=== PATIENT | female | born 1940 | race Caucasian/White ===

== ENCOUNTER 2016-06-20 08:50 | Emergency (ER) | payer MEDICARE ==
--- NOTE | 2016-06-20 09:26 | ER Document Report ---
ED General - General Mode of Arrival: Medic Information source: Patient, Emergency Med Personnel TRAVEL OUTSIDE OF THE [place] IN LAST 30 DAYS: No - HPI Patient complains to provider of: Weakness Onset: Other - few days ago Associated symptoms: Other - see notes above <TRESA LENZ - Last Filed: 06/20/16 09:21> <KALAFERMIN - Last Filed: 06/20/16 12:26> - General Chief Complaint: General Weakness Stated Complaint: WEAKNESS Notes: 76 year old female with history of dementia, COPD, hypertension, and Alzheimer' s presents to the ED via EMS complaining of weakness and shortness of breath that started a few days ago. Patient states that nothing has recently happened to cause the weakness, but that she feels tired and out of energy. Patient reports the shortness of breath at rest, but worsened with exertion. Patient's son also states that the patient has been having loss of appetite for the past couple months. Patient is on medication to help with her appetite. Patient's primary care provider is Dr. Chance at [facility]. (TRESA LENZ) - Related Data Allergies/Adverse Reactions: Penicillins Allergy (Verified 04/20/15 15:53) Past Medical History - General Information source: Patient - Social History Smoking Status: Unknown if Ever Smoked Family History: Reviewed & Not Pertinent - Past Medical History Cardiac Medical History: Reports: Hx Hypertension Pulmonary Medical History: Reports: Hx COPD Psychiatric Medical History: Reports: Hx Dementia, Other - alzheimer's Past Surgical History: Reports: Hx Appendectomy, Hx Cholecystectomy, Hx Hysterectomy <TRESA LENZ - Last Filed: 06/20/16 09:21> Review of Systems - Review of Systems Constitutional: See HPI, Weakness EENT: No symptoms reported Cardiovascular: No symptoms reported Respiratory: See HPI, Short of breath - worsened with exertion Gastrointestinal: See HPI, Poor appetite Genitourinary: No symptoms reported Female Genitourinary: No symptoms reported Musculoskeletal: No symptoms reported Skin: No symptoms reported Hematologic/Lymphatic: No symptoms reported Neurological/Psychological: No symptoms reported -: Yes All other systems reviewed and negative <TRESA LENZ - Last Filed: 06/20/16 09:21> Physical Exam - General General appearance: Alert, Other - cachectic In distress: None - HEENT Head: Normocephalic, Atraumatic Eyes: Normal Extraocular movements intact: Yes Pupils: PERRL - Respiratory Respiratory status: No respiratory distress - 96% on room air Breath sounds: Rhonchi - Rhonchi that is cleared with coughing - Cardiovascular Rhythm: Regular Heart sounds: Normal auscultation - Abdominal Inspection: Normal Distension: No distension Tenderness: Nontender - Extremities General upper extremity: Normal inspection, Normal ROM. No: Edema General lower extremity: Normal inspection, Normal ROM. No: Edema - Neurological Neuro grossly intact: Yes - Psychological Associated symptoms: Normal affect, Normal mood - Skin Skin Temperature: Warm Skin Moisture: Dry Skin Color: Normal <TRESA LENZ - Last Filed: 06/20/16 09:21> Course - Laboratory Result Diagrams: 06/20/16 09:22 06/20/16 09:22 - Diagnostic Test Radiology reviewed: Image reviewed, Reports reviewed - COPD <FERMIN ARMENDARIZ - Last Filed: 06/20/16 12:26> - Vital Signs Vital signs: Temp Pulse Resp BP Pulse Ox 99.1 F 97 17 151/65 H 100 06/20/16 08:54 06/20/16 08:54 06/20/16 11:00 06/20/16 09:03 06/20/16 11:00 - Laboratory Laboratory results interpreted by me: 06/20/16 06/20/16 06/20/16 09:22 09:22 11:00 RDW 15.1 H BUN 27 H Creatinine 1.38 H Est GFR ( Amer) 45 L Est GFR (Non-Af Amer) 37 L Calcium 10.3 H AST 41 H Urine Ascorbic Acid 40 H Discharge <TRESA LENZ - Last Filed: 06/20/16 09:21> <FERIMN ARMENDARIZ - Last Filed: 06/20/16 12:26> - Discharge Clinical Impression: Adult failure to thrive Dementia Qualifiers: Dementia type: Alzheimer's disease Alzheimer's disease onset: unspecified onset Dementia behavioral disturbance: without behavioral disturbance Qualified Code(s): G30.9 - Alzheimer's disease, unspecified; F02.80 - Dementia in other diseases classified elsewhere without behavioral disturbance Condition: Stable Disposition: HOME, SELF-CARE Additional Instructions: Try to eat well-balanced meals everyday. Drink more fluids throughout the day. Follow-up with your doctor to discuss other methods to improve your appetite. RETURN TO THE EMERGENCY ROOM IF ANY NEW OR WORSENING SYMPTOMS. Scribe Attestation: 06/20/16 12:26 I personally performed the services described in the documentation, reviewed and edited the documentation which was dictated to the scribe in my presence, and it accurately records my words and actions. (FERMIN ARMENDARIZ) Scribe Documentation - Scribe Written by Scrjaime:: Bandar Clark, 06/20/2016 0929 acting as scribe for :: Kala <TRESA LENZ - Last Filed: 06/20/16 09:21>
[2016-06-20 09:43] LABS: ABSOLUTE BASOPHILS # (AUTO) 0.1 10^3/uL (0.0-0.2); ABSOLUTE EOSINOPHILS # (AUTO) 0.4 10^3/uL (0.0-0.6); ABSOLUTE LYMPHOCYTES (AUTO) 1.2 10^3/uL (0.5-4.7); ABSOLUTE MONOCYTES (AUTO) 0.5 10^3/uL (0.1-1.4); ABSOLUTE NEUT (AUTO) 6.7 10^3/uL (1.7-8.2); BASOPHILS % (AUTO) 1.3 % (0-2); HEMATOCRIT 42.1 % (36.0-47.0); HEMOGLOBIN 14.1 g/dL (12.0-15.5); HGB HCT DIFFERENCE 0.2; LYMPHOCYTES % (AUTO) 13.7 % (13-45); MEAN CORPUSCULAR HEMOGLOBIN 30.4 pg (27.0-33.4); MEAN CORPUSCULAR HGB CONC 33.6 g/dL (32.0-36.0); MEAN CORPUSCULAR VOLUME 91 fl (80-97); MONOCYTES % (AUTO) 5.5 % (3-13); RED BLOOD COUNT 4.64 10^6/uL (3.72-5.28); RED CELL DISTRIBUTION WIDTH 15.1 % (11.5-14.0); SEGMENTED NEUTROPHILS % (AUTO) 75.5 % (42-78); WHITE BLOOD COUNT 8.9 10^3/uL (4.0-10.5)
[2016-06-20 10:02] LABS: ALANINE AMINOTRANSFERASE 35 U/L (9-52); ALBUMIN 4.5 g/dL (3.5-5.0); ALKALINE PHOSPHATASE 122 U/L (38-126); ANION GAP 13 (5-19); ASPARTATE AMINO TRANSFERASE 41 U/L (14-36); BILIRUBIN,DIRECT 0.2 mg/dL (0.0-0.4); BILIRUBIN,TOTAL 0.6 mg/dL (0.2-1.3); BLOOD UREA NITROGEN 27 mg/dL (7-20); CALCIUM 10.3 mg/dL (8.4-10.2); CARBON DIOXIDE 25 mmol/L (22-30); CHLORIDE 106 mmol/L (98-107); CREATINE KINASE 32 U/L (30-135); CREATININE RESULT 1.38 mg/dL (0.52-1.25); GLUCOSE 99 mg/dL (75-110); POTASSIUM 4.8 mmol/L (3.6-5.0); SODIUM 144.2 mmol/L (137-145); TOTAL PROTEIN 7.1 g/dL (6.3-8.2)
[2016-06-20 10:14] LABS: CREATINE KINASE MB 0.29 ng/mL (<4.55)
[2016-06-20 10:15] LABS: TROPONIN I < 0.012 ng/mL
[2016-06-20 11:18] LABS: APPEARANCE,URINE SLIGHTLY-CLOUDY; BILIRUBIN,URINE NEGATIVE (NEGATIVE); GLUCOSE, URINE NEGATIVE (NEGATIVE); KETONES,URINE NEGATIVE (NEGATIVE); LEUKOCYTE ESTERASE,URINE NEGATIVE (NEGATIVE); NITRITE,URINE NEGATIVE (NEGATIVE); PROTEIN,URINE NEGATIVE (NEGATIVE); URINE SPECIFIC GRAVITY 1.019; UROBILINOGEN,URINE NEGATIVE mg/dL (<2.0)
[2016-06-20 12:33] VITALS: BP 142/65
== END 2016-06-20 12:50 | disposition home or self-care (01) ==
LOC: ER 08:50
DX: R62.7 Adult failure to thrive (principal); G30.9 Alzheimer's disease, unspecified; F02.80 Dementia in other diseases classified elsewhere, unspecified severity, without behavioral disturbance, psychotic disturbance, mood disturbance, and anxiety; R53.1 Weakness; I10 Essential (primary) hypertension; J44.9 Chronic obstructive pulmonary disease, unspecified; Z90.49 Acquired absence of other specified parts of digestive tract; Z90.710 Acquired absence of both cervix and uterus; Z88.0 Allergy status to penicillin
CPT/HCPCS: 36415; 71010; 80053; 81001; 82550; 82553; 84484; 85025; 85379; 87040; 87086; 99285